=== PATIENT | male | born 1995 | race Caucasian/White ===

== ENCOUNTER 2019-01-21 13:14 | Emergency (ER) | payer MEDICAID, OTHER ==
[2019-01-21] MEDS ORDERED: SODIUM CHLORIDE 0.9% 1,000 ML IV ONE (14:30)
--- NOTE | 2019-01-21 14:54 | ED ---
General Adult HPI - General Chief complaint: Anxiety Stated complaint: Feet and hand numbness, body pain Time Seen by Provider: 01/21/19 13:25 Source: patient, RN notes reviewed Mode of arrival: ambulatory Limitations: no limitations - History of Present Illness Initial comments: This a 23-year-old male presents emergency Department with multiple complaints. Patient states her last 2 months he's been having worsening symptoms including intermittent numbness and tingling in different parts of his body, increasing pain primarily his back, legs, increased fatigue, anxiety issues. Patient states he normally does do with depression and anxiety but states this is different. He feels that he has some underlying neurological disorder. Patient states that he feels work is going on is debilitating his life. Patient denies any nausea vomiting diarrhea constipation. Denies any fevers chills denies any focal weakness. Patient states that he feels that his symptoms are not just anxiety that there something else going on. - Related Data Previous Rx's Medication Instructions Recorded Escitalopram [Lexapro] 5 mg PO DAILY #14 tab 06/11/17 Nicotine 7Mg/24Hr Patch [Habitrol] 1 patch TRANSDERM DAILY #14 patch 06/11/17 Nystatin 100,000 Unit/ml Susp 500,000 unit PO QID 14 Days cup 06/11/17 [Mycostatin Oral Susp] Allergies Allergy/AdvReac Type Severity Reaction Status Date / Time Penicillins Allergy Unknown Unknown Verified 06/10/17 07:46 Childhood Review of Systems ROS Statement: Those systems with pertinent positive or pertinent negative responses have been documented in the HPI. ROS Other: All systems not noted in ROS Statement are negative. Past Medical History Past Medical History: No Reported History History of Any Multi-Drug Resistant Organisms: None Reported Past Surgical History: No Surgical Hx Reported Past Psychological History: Anxiety, Depression Smoking Status: Current every day smoker Past Alcohol Use History: Occasional Past Drug Use History: Marijuana, Prescription Drug Abuse General Exam Limitations: no limitations General appearance: alert, in no apparent distress, anxious Head exam: Present: atraumatic, normocephalic, normal inspection Eye exam: Present: normal appearance, PERRL, EOMI. Absent: scleral icterus, conjunctival injection, periorbital swelling ENT exam: Present: normal exam, normal oropharynx, mucous membranes moist, TM's normal bilaterally Neck exam: Present: normal inspection, full ROM. Absent: tenderness, meningismus, lymphadenopathy Respiratory exam: Present: normal lung sounds bilaterally. Absent: respiratory distress, wheezes, rales, rhonchi, stridor Cardiovascular Exam: Present: normal rhythm, tachycardia, normal heart sounds. Absent: systolic murmur, diastolic murmur, rubs, gallop, clicks GI/Abdominal exam: Present: soft, normal bowel sounds. Absent: distended, tenderness, guarding, rebound, rigid Neurological exam: Present: alert, oriented X3, CN II-XII intact Psychiatric exam: Present: anxious Skin exam: Present: warm, dry, intact, normal color. Absent: rash Course Vital Signs 01/21/19 01/21/19 13:17 15:20 Temperature 98.5 F Pulse Rate 125 H 98 Respiratory 22 20 Rate Blood Pressure 145/92 137/99 O2 Sat by Pulse 98 98 Oximetry EKG Findings - EKG Comments: EKG Findings:: EKG performed at 14:36 sinus tachycardia rate of 106 PA 158 QRS 88 QT/QTC 310/411 Medical Decision Making - Medical Decision Making 23-year-old male present emergency department for multiple complaints. Patient had lab work which are unremarkable. Patient has complained of paresthesias, anxiety issues, muscle skeletal pain. Patient will be referred to neurology, rheumatology for further workup. Return parameters were discussed. - Lab Data Result diagrams: 01/21/19 14:40 01/21/19 14:40 Lab Results 01/21/19 01/21/19 01/21/19 Range/Units 14:40 14:40 14:45 WBC 5.5 (3.8-10.6) k/uL RBC 5.46 (4.30-5.90) m/uL Hgb 17.4 (13.0-17.5) gm/dL Hct 50.3 (39.0-53.0) % MCV 92.1 (80.0-100.0) fL MCH 31.8 (25.0-35.0) pg MCHC 34.5 (31.0-37.0) g/dL RDW 14.5 (11.5-15.5) % Plt Count 197 (150-450) k/uL Neutrophils % (Manual) 56 % Lymphocytes % (Manual) 24 % Monocytes % (Manual) 20 % Neutrophils # (Manual) 3.08 (1.3-7.7) k/uL Lymphocytes # (Manual) 1.32 (1.0-4.8) k/uL Monocytes # (Manual) 1.10 H (0-1.0) k/uL Nucleated RBCs 0 (0-0) /100 WBC Manual Slide Review Performed Sodium 140 (137-145) mmol/L Potassium 3.7 (3.5-5.1) mmol/L Chloride 100 (98-107) mmol/L Carbon Dioxide 28 (22-30) mmol/L Anion Gap 12 mmol/L BUN 11 (9-20) mg/dL Creatinine 0.80 (0.66-1.25) mg/dL Est GFR (CKD-EPI)AfAm >90 (>60 ml/min/1.73 sqM) Est GFR (CKD-EPI)NonAf >90 (>60 ml/min/1.73 sqM) Glucose 83 (74-99) mg/dL Calcium 10.3 H (8.4-10.2) mg/dL Magnesium 2.2 (1.6-2.3) mg/dL Total Bilirubin 0.8 (0.2-1.3) mg/dL AST 58 (17-59) U/L ALT 37 (21-72) U/L Alkaline Phosphatase 103 (38-126) U/L Total Protein 8.3 H (6.3-8.2) g/dL Albumin 5.2 H (3.5-5.0) g/dL TSH 3.940 (0.465-4.680) mIU/L Urine Color Yellow Urine Appearance Clear (Clear) Urine pH 6.0 (5.0-8.0) Ur Specific [place] 1.030 (1.001-1.035) Urine Protein 1+ H (Negative) Urine Glucose (UA) Negative (Negative) Urine Ketones Negative (Negative) Urine Blood Negative (Negative) Urine Nitrite Negative (Negative) Urine Bilirubin Negative (Negative) Urine Urobilinogen 4.0 (<2.0) mg/dL Ur Leukocyte Esterase Negative (Negative) Urine RBC 2 (0-5) /hpf Urine WBC 1 (0-5) /hpf Urine Mucus Few H (None) /hpf Urine Opiates Screen Not Detected (NotDetected) Ur Oxycodone Screen Not Detected (NotDetected) Urine Methadone Screen Not Detected (NotDetected) Ur Propoxyphene Screen Not Detected (NotDetected) Ur Barbiturates Screen Not Detected (NotDetected) U Tricyclic Antidepress Not Detected (NotDetected) Ur Phencyclidine Scrn Not Detected (NotDetected) Ur Amphetamines Screen Not Detected (NotDetected) U Methamphetamines Scrn Not Detected (NotDetected) U Benzodiazepines Scrn Not Detected (NotDetected) Urine Cocaine Screen Not Detected (NotDetected) U Marijuana (THC) Screen Detected H (NotDetected) Disposition Clinical Impression: Myalgia, Paresthesias, Fatigue, Anxiety Disposition: HOME SELF-CARE Condition: Stable Instructions (If sedation given, give patient instructions): Musculoskeletal Pain (ED) Additional Instructions: Please return to the Emergency Department if symptoms worsen or any other concerns. Is patient prescribed a controlled substance at d/c from ED?: No Referrals: Sydnee Bolanos DO [Primary Care Provider] - 1-2 days Trinh Luna MD [STAFF PHYSICIAN] - 1-2 days Dequan Greenwood DO [STAFF PHYSICIAN] - 1-2 days Brenda Harrington MD [STAFF PHYSICIAN] - 1-2 days Time of Disposition: 16:04
[2019-01-21 15:04] LABS: Appearance,Urine Clear (Clear); Bilirubin,Urine Negative (Negative); Blood,Urine Negative (Negative); Color,Urine Yellow; Glucose,Urine (UA) Negative (Negative); Ketones,Urine Negative (Negative); Leukocyte Esterase,Urine Negative (Negative); Mucus,Urine Few /hpf; Nitrite,Urine Negative (Negative); Protein,Urine 1+ (Negative); RBC,Urine 2 /hpf (0-5); WBC,Urine 1 /hpf (0-5)
[2019-01-21 15:09] LABS: Amphetamine Screen,Urine Not Detected (NotDetected); Barbiturate Screen,Urine Not Detected (NotDetected); Benzodiazepines Screen,Urine Not Detected (NotDetected); Cocaine Screen,Urine Not Detected (NotDetected); Methadone Screen, Urine Not Detected (NotDetected); Opiate Screen,Urine Not Detected (NotDetected); Oxycodone Screen, Urine Not Detected (NotDetected); Phencyclidine Screen,Urine Not Detected (NotDetected); Tricyclic Antidepressant,Urine Not Detected (NotDetected); Urn Cannabinoid Scrn Detected (NotDetected)
[2019-01-21 15:10] LABS: ALT 37 U/L (21-72); AST 58 U/L (17-59); Albumin 5.2 g/dL (3.5-5.0); Alkaline Phosphatase 103 U/L (38-126); Anion Gap 12 mmol/L; Blood Urea Nitrogen 11 mg/dL (9-20); Calcium 10.3 mg/dL (8.4-10.2); Carbon Dioxide 28 mmol/L (22-30); Chloride 100 mmol/L (98-107); Glucose 83 mg/dL (74-99); Magnesium 2.2 mg/dL (1.6-2.3); Potassium 3.7 mmol/L (3.5-5.1); Sodium 140 mmol/L (137-145); Total Bilirubin 0.8 mg/dL (0.2-1.3); Total Protein 8.3 g/dL (6.3-8.2)
[2019-01-21 15:19] LABS: HCT 50.3 % (39.0-53.0); HGB 17.4 gm/dL (13.0-17.5); MCH 31.8 pg (25.0-35.0); MCHC 34.5 g/dL (31.0-37.0); MCV 92.1 fL (80.0-100.0); Mean Platelet Volume 7.8; Platelet Count 197 k/uL (150-450); RBC 5.46 m/uL (4.30-5.90); RDW 14.5 % (11.5-15.5); WBC 5.5 k/uL (3.8-10.6)
[2019-01-21 15:55] LABS: Lymphocytes # (M) 1.32 k/uL (1.0-4.8); Neutrophils # (M) 3.08 k/uL (1.3-7.7); Neutrophils % (M) 56 %; Nucleated Red Blood Cells 0 /100 WBC (0-0); Total Cells Counted 100
[2019-01-21 16:18] VITALS: BP 137/98; PULSE 107; RESP 16; TEMP 99.4
== END 2019-01-21 16:40 | disposition home or self-care (01) ==
LOC: EC 13:14
DX: F41.9 Anxiety disorder, unspecified (principal); M79.10 Myalgia, unspecified site; R53.83 Other fatigue; R20.2 Paresthesia of skin; F17.200 Nicotine dependence, unspecified, uncomplicated; Z88.0 Allergy status to penicillin
CPT/HCPCS: 36415; 80053; 80306; 81001; 83735; 84443; 85025; 93005; 96360; 99283

== ENCOUNTER 2022-08-21 17:14 | Emergency (ER) | payer OTHER, BC ==
[2022-08-21 18:14] VITALS: BP 149/91; PULSE 119; RESP 20; TEMP 98
--- NOTE | 2022-08-21 19:46 | XR ---
EXAMINATION TYPE: XR ankle complete LT, XR foot complete LT DATE OF EXAM: 08/21/2022 CLINICAL HISTORY: Twisting injury with pain. TECHNIQUE: Frontal, lateral and oblique images of the left ankle and foot are obtained. COMPARISON: None. FINDINGS: There is no acute fracture/dislocation evident in the left ankle. The ankle mortise appea rs within normal limits. Moderate to severe soft tissue swelling and subcutaneous edema over the late ral malleolus. There is no acute fracture or dislocation evident in the left foot. The joint spaces in the left javan t are preserved. Overlying soft tissue is unremarkable. IMPRESSION: Soft tissue swelling and subcutaneous edema laterally without acute displaced fracture in the left ankle or foot.
[2022-08-21] MEDS ORDERED: KETOROLAC 15 MG/ML 1 ML VIAL IM STA (20:13)
[2022-08-21] MEDS ORDERED: ACETAMINOPHEN TAB 500 MG TAB PO STA (20:13)
--- NOTE | 2022-08-21 20:27 | ED ---
Lower Extremity Injury HPI - General Chief Complaint: Extremity Injury, Lower Stated Complaint: [facility] - lt ankle injury Time Seen by Provider: 08/21/22 20:10 Source: patient, RN notes reviewed, old records reviewed Mode of arrival: ambulatory Limitations: no limitations - History of Present Illness Initial Comments: 26-year-old male presents with complaints of rolling his left ankle when stepping off a trailer at 3:30 this afternoon. Increased pain and swelling. Denies any other injuries. No medical history. MD Complaint: ankle injury (left) -: hour(s) (5) Type of Injury: other (rolled ankle) Severity scale (1-10): 7 Improves With: nothing Worsens With: movement, palpation - Related Data Previous Rx's Medication Instructions Recorded Escitalopram [Lexapro] 5 mg PO DAILY #14 tab 06/11/17 Nicotine 7Mg/24Hr Patch [Habitrol] 1 patch TRANSDERM DAILY #14 patch 06/11/17 Nystatin 100,000 Unit/ml Susp 500,000 unit PO QID 14 Days cup 06/11/17 [Mycostatin Oral Susp] Ibuprofen [Motrin] 600 mg PO Q8HR PRN #30 tab 08/21/22 Allergies Allergy/AdvReac Type Severity Reaction Status Date / Time Penicillins Allergy Unknown Unknown Verified 08/21/22 18:14 Childhood Review of Systems ROS Statement: Those systems with pertinent positive or pertinent negative responses have been documented in the HPI. ROS Other: All systems not noted in ROS Statement are negative. Past Medical History Past Medical History: No Reported History History of Any Multi-Drug Resistant Organisms: None Reported Past Surgical History: No Surgical Hx Reported Past Psychological History: Anxiety, Depression Smoking Status: Vaper Past Alcohol Use History: Occasional Past Drug Use History: Prescription Drug Abuse General Exam Limitations: no limitations General appearance: alert, in no apparent distress Head exam: Present: atraumatic Respiratory exam: Absent: respiratory distress, accessory muscle use Cardiovascular Exam: Present: tachycardia Extremities exam: Present: normal capillary refill Left Knee exam: Absent: tenderness Lower Leg exam: Present: tenderness (Distal tib-fib), swelling (Achilles tendon intact). Absent: abrasion, laceration, deformity, crepitus, dislocation, erythema Ankle exam: Present: tenderness, swelling, ecchymosis. Absent: full ROM, abrasion, laceration, deformity, crepitus, dislocation, erythema Neurovascular tendon exam: Present: no vascular compromise. Absent: extremity cold to touch, pallor, foot drop Gait: unable to bear weight Neurological exam: Present: alert, oriented X3 Psychiatric exam: Present: normal affect, normal mood Skin exam: Present: warm, dry, normal color. Absent: cyanosis, diaphoretic, petechiae, pallor Course Vital Signs 08/21/22 18:11 Temperature 98.0 F Pulse Rate 119 H Respiratory 20 Rate Blood Pressure 149/91 O2 Sat by Pulse 98 Oximetry Procedures - Orthopedic Splinting/Casting Injury #1 Side: left Lower Extremity Immobilizer: stirrup splint (ankle stirrup) Other Orthopedic Equipment: crutches Medical Decision Making - Medical Decision Making X-ray of left ankle and foot interpreted by me shows no evidence of fracture or dislocation. Radiologist interpretation soft tissue swelling and subcutaneous edema laterally without acute displaced fracture in the left ankle or foot. Moderate to severe soft tissue swelling and subcutaneous edema over the lateral malleolus. Ankle mortise appears within normal limits. Patient's pain and swelling consistent with a high ankle sprain. He was placed in a ankle stirrup and given crutches directed to rest ice and elevate and follow-up with orthopedics. He is agreeable to this plan of care. Case discussed with Dr. Spence Was pt. sent in by a medical professional or institution? @ -[facility] Did you speak to anyone other than the patient for history? @ -No Did you review nursing and triage notes? @ -Yes I agree Were old charts reviewed? @ -No Differential Diagnosis? @ -Ankle sprain, fracture, dislocation, Achilles tendon rupture EKG interpreted by me (3pts min.)? @ -Not applicable X-rays interpreted by me (1pt min.)? @ -Yes as above CT interpreted by me (1pt min.)? @ -No U/S interpreted by me (1pt. min.)? @ -No What testing was considered but not performed? (CT, X-rays, U/S, labs)? Why? @ None What meds were considered but not given? Why? @ -None Did you discuss the management of the patient with other professionals? @ -No Did you reconcile home meds? @ -No Was smoking cessation discussed for >3mins.? @ -No Was critical care preformed (if so, how long)? @ -No Were there social determinants of health that impacted care today? How? (Homelessness, low income, unemployed, alcoholism, drug addiction, transportation, low edu. Level, literacy, decrease access to med. care, correction, rehab)? @ -No Was there de-escalation of care discussed even if they declined? (Discuss DNR or withdrawal of care, Hospice)? @ -No What co-morbidities impacted this encounter? (DM, HTN, Smoking, COPD, CAD, Cancer, CVA, Hep., AIDS, mental health diagnosis, sleep apnea, morbid obesity)? @ -None Was patient admitted / discharged? @ -Discharged Undiagnosed new problem with uncertain prognosis? @ -No Drug Therapy requiring intensive monitoring for toxicity (Heparin, Nitro, Insulin, Cardizem)? @ -No Were any procedures done? @ -Ankle stirrup placed Diagnosis/symptom? @ -High ankle sprain Acute, or Chronic, or Acute on Chronic? @ -Acute Uncomplicated (without systemic symptoms) or Complicated (systemic symptoms)? @ -Uncomplicated Side effects of treatment? @ -[none] Exacerbation, Progression, or Severe Exacerbation] @ -[no] Poses a threat to life or bodily function? @ -[no] Disposition Clinical Impression: High ankle sprain Disposition: HOME SELF-CARE Condition: Good Instructions (If sedation given, give patient instructions): Ankle Sprain (ED) Additional Instructions: Rest, ice, elevate and wear ankle support until follow-up with orthopedics next week. Take Motrin as prescribed for pain and inflammation. Use crutches until seen by Ortho. Prescriptions: Ibuprofen [Motrin] 600 mg PO Q8HR PRN #30 tab PRN Reason: Pain Is patient prescribed a controlled substance at d/c from ED?: No Referrals: None,Stated [Primary Care Provider] - 1-2 days Fang Shirley DO [Doctor of Osteopathic Medicine] - 1-2 days Time of Disposition: 20:23
== END 2022-08-21 20:45 | disposition home or self-care (01) ==
LOC: EC 17:14
DX: S93.402A Sprain of unspecified ligament of left ankle, initial encounter (principal); F17.290 Nicotine dependence, other tobacco product, uncomplicated; F32.A Depression, unspecified; F41.9 Anxiety disorder, unspecified; Z88.0 Allergy status to penicillin; Z79.899 Other long term (current) drug therapy; X50.1XXA Overexertion from prolonged static or awkward postures, initial encounter; Y93.89 Activity, other specified
CPT/HCPCS: 29515; 96372; 99283